=== PATIENT | female | born 1970 | race African-American/Black ===

== ENCOUNTER 2016-07-21 13:45 | Emergency (ER) | payer BC ==
[~2016-07-21] VITALS: Ht 167.6 cm; Wt 105.5 kg
[~2016-07-21 13:45] MED LIST: IBUP-1542 PO; LISI10TA2 PO; ULT50 PO
[2016-07-21 13:47] VITALS: Ht 167.6 cm; Wt 105.5 kg
[2016-07-21] MEDS ORDERED: CLIN-73 PO (14:12)
[2016-07-21] MEDS ORDERED: NAPR-260 PO (14:12)
[2016-07-21] MEDS ORDERED: HYDR-906 PO ×2 (14:12→14:15)
--- NOTE | 2016-07-21 17:15 | ERD ---
DATE OF SERVICE: HISTORY OF PRESENT ILLNESS: The patient is a 45-year-old female coming in complaining of facial swe lling on the left side for the last day. Patient states that she had a root canal done a few weeks ago and she has developed some pain around the site. She states that she noticed swelling, no fever s, no pain with eye movement. No pain with swallowing. No difficulty swallowing. She has not take n any medication. She did put warm patches on her cheeks, which improved her symptoms; however, she is concerned about infection. Denies any other medical problems. ALLERGIES: ALLERGIC TO PENICILLIN. MEDICAL PROBLEMS: Hypertension, cardiomegaly. SURGICAL HISTORY: . SMOKING HISTORY: Denies. REVIEW OF SYSTEMS: A 12-point review of systems was done. Refer to HPI for positives, all other sy stems negative. PHYSICAL EXAMINATION VITAL SIGNS: Temperature is 98.9, pulse 97, blood pressure is 128/72, respiratory rate 18, O2 satur ation 98% on room air. Pain intensity 8/10. GENERAL: The patient is well-appearing, well-nourished, no acute distress. HEENT: There is some mild swelling noted to the left cheek with no pain with extraocular movements. The patient has some poor dentition noted throughout on the upper and lower left jaw line. TMs ar e within normal limits. No erythema or exudates. CHEST: Clear to auscultation bilaterally. There are no rales, wheezes or rhonchi. HEART: Regular rate and rhythm. No murmurs, clicks, rubs or gallops. No S3 or S4. DIAGNOSIS: Tooth abscess. MEDICAL DECISION MAKING: The patient does have pain along the teeth and she does have some associat ed with swelling, so I will treat the patient with antibiotics and recommend close followup with the dentist. I have low suspicion for deep tracking sinus infection or deep dental infection. The pat ient's vital signs are stable and patient's exam is nonconcerning. Low suspicion for ocular infecti on. DISCHARGE: The patient is discharged stable. Patient given prescription for clindamycin as SHE IS ALLERGIC TO PENICILLIN, Hedrick and naproxen and told to follow up with primary care within 1 to 2 day s for reevaluation. The patient was told to not use the Hedrick while driving. All other questions a nswered at time of discharge. Discharge summary given at the time of departure. Patient understood and complied with plan. Dictated By: EZEQUIEL WILSON for ALLISON HDEZ/CLEMENT Conf#: [id number] DID#: [id number]
== END 2016-07-21 14:12 | disposition home or self-care (01) ==
LOC: FTE 13:45 → E/R 14:12
DX: K04.7 Periapical abscess without sinus (principal); I10 Essential (primary) hypertension; Z87.891 Personal history of nicotine dependence
CPT/HCPCS: 99284

== ENCOUNTER 2016-09-27 19:52 | Emergency (ER) | payer BC ==
[~2016-09-27] VITALS: Ht 175.3 cm; Wt 109.5 kg
[~2016-09-27 19:52] MED LIST changes: +CLIN-73 PO; +HYDR-906 PO; +NAPR-260 PO; +TRAM50TA2 PO; -ULT50 PO
[2016-09-27 20:15] VITALS: Ht 175.3 cm; Wt 109.5 kg
[2016-09-27 22:20] LABS: URINE BLOOD (Dip) POC 2+ (NEGATIVE)
[2016-09-27 22:38] LABS: ADD SCAN DIFF NO
[2016-09-27 22:40] LABS: ADD UMIC YES; URINE BILIRUBIN (Dip) NEGATIVE (NEGATIVE); URINE BLOOD (Dip) 3+ (NEGATIVE); URINE COLOR LT. YELLOW (YELLOW); URINE GLUCOSE (Dip) NEGATIVE (NEGATIVE); URINE KETONES (Dip) NEGATIVE (NEGATIVE); URINE LEUKOCYTE ESTERASE (Dip) NEGATIVE (NEGATIVE); URINE NITRITE (Dip) NEGATIVE (NEGATIVE); URINE TOTAL PROTEIN (Dip) NEGATIVE (NEGATIVE); URINE UROBILINOGEN (Dip) 0.2 E.U./dL (0.1-1.0)
[2016-09-27 22:40] LABS: BASOPHILS % 0.4 % (0.0-2.0); EOSINOPHILS # 0.2 10^3/ul (0.0-0.5); HEMATOCRIT 37.7 % (37.0-47.0); HEMOGLOBIN 12.7 g/dl (12.0-16.0); LYMPHOCYTES % 20.7 % (15.0-51.0); MEAN CORPUSCULAR HGB CONC 33.7 g/dl (32.0-37.0); MEAN PLATELET VOLUME 10.3 fl (7.4-10.4); MONOCYTES % 10.4 % (0.0-11.0); NEUTROPHIL # 6.4 10^3/ul (1.6-7.5); NEUTROPHILS % 66.2 % (39.0-77.0); PLATELET COUNT 286 10^3/UL (140-415); WHITE BLOOD COUNT 9.6 10^3/ul (4.8-10.8)
[2016-09-27 22:47] LABS: BACTERIA,URINE OCCASIONAL; SQUAMOUS EPITHELIAL CELL,UR FEW; URINE RBCS 25-50 /HPF (0)
[2016-09-27 22:50] LABS: POTASSIUM 3.6 mmol/L (3.5-5.1)
[2016-09-27 22:52] LABS: BILIRUBIN,INDIRECT 0.2 mg/dl (0-1.1); BILIRUBIN,TOTAL 0.2 mg/dl (0.2-1.3); CREATININE 0.83 mg/dl (0.44-1.00); TOTAL PROTEIN 7.3 g/dl (6.1-8.1)
[2016-09-27 22:53] LABS: ALBUMIN/GLOBULIN RATIO 1.21; CALCIUM 9.4 mg/dl (8.4-10.2)
--- NOTE | 2016-09-27 23:42 | ERD ---
ER Documentation Chief Complaint Date/Time DATE: 09/27/16 TIME: 23:34 Chief Complaint Right side pelvic pain, radiation to the back HPI 45-year-old female presents chief complaint of gradual onset intermittent right- sided pelvic pain that radiates into her lower back 3 days. She is currently on her menstrual cycle. she reports history of 2 C-sections and fibroids. She denies dysuria, fever, vaginal discharge, abdominal pain, and nausea/vomiting. She has not taken any medications for pain relief. She currently rates her pain a 7 out of 10 in severity. She does not wish to have any pain medication at this time. ROS All systems reviewed and are negative except as per history of present illness. Medications Home Meds Active Scripts Ibuprofen* (Motrin*) 600 Mg Tab, 600 MG PO Q6, #30 TAB Prov:Debbie Aj PA-C 09/28/16 Hydrocodone/Acetaminophen ([place] 5-325 Tablet) 1 Each Tablet, 1 TAB PO Q6H Y for PAIN, #15 TAB Prov:Debbie Aj PA-C 09/28/16 Hydrocodone/Acetaminophen ([place] 5-325 Tablet) 1 Each Tablet, 1 EACH PO QHS, #7 TAB Prov:TARIK MALIN PA-C 07/21/16 Clindamycin Hcl* (Clindamycin Hcl*) 300 Mg Capsule, 300 MG PO TID for 7 Days, CAP Prov:TARIK MALIN PA-C 07/21/16 Naproxen* (Naprosyn*) 500 Mg Tablet, 500 MG PO BID Y for PAIN AND/OR INFLAMMATION, #30 TAB Prov:TARIK MALIN PA-C 07/21/16 Tramadol HCl (Tramadol HCl) 50 Mg Tablet, 50 MG PO Q6 Y for PAIN, #20 TAB Prov:JOSH LANDRY NP 05/14/16 Ibuprofen* (Motrin*) 600 Mg Tab, 600 MG PO Q6H Y for PAIN AND OR ELEVATED TEMP, #30 TAB Prov:JOSH LANDRY NP 05/14/16 Reported Medications Lisinopril* (Lisinopril*) Unknown Strength Tablet, PO DAILY, #30 TAB 05/14/16 Allergies Allergies: Coded Allergies: No Known Allergy (Unverified , 05/14/16) PMhx/Soc History of Surgery: Yes ( X 2.) Anesthesia Reaction: No Hx Neurological Disorder: No Hx Respiratory Disorders: No Hx Cardiac Disorders: Yes (HTN.) Hx Psychiatric Problems: No Hx Miscellaneous Medical Probl: Yes (ANEMIA, FIBROIDS) Hx Alcohol Use: No Hx Substance Use: No Hx Tobacco Use: Yes (3CIG/DAY) Smoking Status: Light tobacco smoker Physical Exam Vitals Vital Signs Date Time Temp Pulse Resp B/P Pulse Ox O2 Delivery O2 Flow Rate FiO2 09/27/16 20:15 98.3 109 18 171/91 100 Physical Exam GENERAL: Non-toxic. No apparent signs of distress. LUNGS: Clear to auscultation. No accessory muscle use. No wheezing, no crackles. No signs or symptoms of respiratory distress. HEART: Regular rate and rhythm. No murmurs, clicks, rubs or gallops. ABDOMEN: Soft, mild tenderness to palpation of the right adnexa and nondistended. Bowel sounds positive. No rebound or guarding. No gross peritoneal signs. No Ortega or McBurney point tenderness. No gross masses. BACK: No midline tenderness, no costovertebral tenderness. NEURO: Cranial nerves are grossly intact. Normal mental status for age. Good muscle tone. SKIN: There is no apparent rash, petechiae, erythema or swelling. Good skin turgor. Result Diagram: 09/27/16222909/27/162229 Results 24 hrs Laboratory Tests Test 09/27/16 22:15 09/27/16 22:18 09/27/16 22:30 Urine Bacteria OCCASIONAL Urine Bilirubin NEGATIVE Urine Clarity CLEAR Urine Color LT. YELLOW Urine Glucose NEGATIVE% Urine Hemoglobin 3+ Urine Ketones NEGATIVE Urine Leukocyte Esterase NEGATIVE Urine Microscopic RBC 25-50/HPF Urine Microscopic WBC 0-2/HPF Urine Nitrite NEGATIVE Urine Specific [place] 1.020 Urine Squamous Epithelial Cells FEW Urine Total Protein NEGATIVE Urine Urobilinogen 0.2 E.U./dL Urine pH 6.0 Bedside Urine Blood 2+ Bedside Urine Glucose (UA) Negative Bedside Urine Ketones (LAB) Negative Bedside Urine Leukocyte Esterase (L Negative Bedside Urine Nitrite (LAB) Negative Bedside Urine Protein (LAB) Negative Bedside Urine pH (LAB) 5.5 Alanine Aminotransferase (ALT/SGPT) 41IU/L Albumin 4.0g/dl Albumin/Globulin Ratio 1.21 Alkaline Phosphatase 60IU/L Anion Gap 17 Aspartate Amino Transf (AST/SGOT) 31IU/L Basophils # 0.010^3/ul Basophils % 0.4% Blood Urea Nitrogen 13mg/dl Calcium Level 9.4mg/dl Carbon Dioxide Level 24mmol/L Chloride Level 104mmol/L Creatinine 0.83mg/dl Direct Bilirubin 0.00mg/dl Eosinophils # 0.210^3/ul Eosinophils % 2.0% Globulin 3.30g/dl Glucose Level 84mg/dl Hematocrit 37.7% Hemoglobin 12.7g/dl Indirect Bilirubin 0.2mg/dl Lymphocytes # 2.010^3/ul Lymphocytes % 20.7% Mean Corpuscular Hemoglobin 31.0pg Mean Corpuscular Hemoglobin Concent 33.7g/dl Mean Corpuscular Volume 92.0fl Mean Platelet Volume 10.3fl Monocytes # 1.010^3/ul Monocytes % 10.4% Neutrophils # 6.410^3/ul Neutrophils % 66.2% Nucleated Red Blood Cells # 0.010^3/ul Nucleated Red Blood Cells % 0.0/100WBC Platelet Count 48061^3/UL Potassium Level 3.6mmol/L Red Blood Count 4.1010^6/ul Red Cell Distribution Width 12.0% Sodium Level 141mmol/L Total Bilirubin 0.2mg/dl Total Protein 7.3g/dl White Blood Count 9.610^3/ul Procedures/MDM Patient had right adnexal tenderness on exam, she states that she has had gradual onset of pelvic pain over the past 3 days. She has a history of fibroids. She states that she is currently on her menstrual cycle. Basic labs were ordered along with a pelvic ultrasound to assess for severe infection, anemia, and to rule out ovarian torsion and ovarian cyst. Patient had no rebound tenderness on exam and no tenderness over McBurney's point. She is afebrile and appears to be in no acute distress. At this time of low suspicion for appendicitis, pancreatitis, cholecystitis, PID, and diverticulitis. Awaiting results prior further management. CBC: No leukocytosis or anemia CMP: No signs of severe dehydration, electrolyte imbalances, normal kidney function, liver function tests within normal limits UA: No leukocyte esterase or nitrite, UTI and pyelonephritis unlikely Pelvic ultrasound: IMPRESSION: 1. Enlarged leiomyomatous uterus with distorted anatomy that does not allow for visualization of the endometrial bilayer. 2. The ovaries are not visualized. Explained to the patient that symptoms are likely due to uterine fibroids, as indicated by ultrasound. I provided medication for pain relief, and suggested follow-up with [facility]. I provided list of [facility] resources. At this time of low suspicion for ectopic , ovarian torsion, PID, and UTI. Patient is here for discharge and outpatient management at this time. Advised to follow-up with PCP or [facility] in 1-2 days. Departure Diagnosis: Primary Impression: Acute pain in female pelvis Condition: Good Debbie Aj PA-C Sep 27, 2016 23:42
--- NOTE | 2016-09-27 23:50 | RADRPT ---
PROCEDURE: US Pelvis. CLINICAL INDICATION: Suprapubic and right adnexal pain TECHNIQUE: Multiple sonographic images of the pelvis were obtained utilizing a transabdominal and endovaginal technique. The images were reviewed on a PACS workstation. COMPARISON: None available FINDINGS: Uterus: Enlarged with heterogeneous echotexture and multiple leiomyomata. Overall uterine size is e stimated at 14.1 x 10.9 x 7.7 cm. Cervix: Small Nabothian cysts Endometrium: Not visualize, the leiomyomatous uterus distorts the normal anatomy. Right ovary / adnexa: The ovary is not visualized. There is no obvious adnexal mass. Left ovary/adnexa: The ovary is not visualized. There is no obvious adnexal mass. Cul-de-sac: No evidence of free fluid. RPTAT:HJJR IMPRESSION: 1. Enlarged leiomyomatous uterus with distorted anatomy that does not allow for visualization of the endometrial bilayer. 2. The ovaries are not visualized. Physician Birdie Date Time Electronically viewed and signed by Physician Birdie on 09/27/2016 23:49 JR/
[2016-09-28] MEDS ORDERED: HYDR-906 PO (00:02)
[2016-09-28] MEDS ORDERED: IBUP-1542 PO (00:02)
== END 2016-09-28 00:18 | disposition home or self-care (01) ==
LOC: FTE 19:52
DX: R10.2 Pelvic and perineal pain (principal); F17.210 Nicotine dependence, cigarettes, uncomplicated; I10 Essential (primary) hypertension
CPT/HCPCS: 36415; 76830; 76856; 80053; 81001; 81003; 85025; Z7502

== ENCOUNTER 2018-07-16 17:01 | Emergency (ER) | payer SELFPAY ==
[~2018-07-16] VITALS: Ht 167.6 cm; Wt 110.0 kg
[~2018-07-16 17:01] MED LIST changes: -CLIN-73 PO; +CLIN300C10 PO; +HYDR-4011 PO; -HYDR-906 PO; -NAPR-260 PO; +NAPR-985 PO
[2018-07-16 17:12] VITALS: BP 182/114; PULSE 90; RESP 18; Ht 167.6 cm; Wt 110.0 kg
== END 2018-07-16 19:22 | disposition left against medical advice (07) ==
LOC: FTE 17:01
DX: Z53.21 Procedure and treatment not carried out due to patient leaving prior to being seen by health care provider (principal)